=== PATIENT | female | born 1980 | race Caucasian/White ===

== ENCOUNTER 2020-05-23 19:30 | Emergency (ER) | payer SELFPAY ==
[~2020-05-23] VITALS: Ht 165.1 cm; Wt 72.7 kg
[2020-05-23] MEDS ORDERED: AUGMENTIN 875-11 TAB PO (19:40)
[2020-05-23 19:44] VITALS: BP 114/74; Ht 165.1 cm; Wt 72.7 kg
== END 2020-05-23 20:20 | disposition home or self-care (01) ==
LOC: D.ER 19:30
DX: L03.113 Cellulitis of right upper limb (principal)

== ENCOUNTER 2020-06-21 16:39 | Emergency (ER) | payer SELFPAY ==
[~2020-06-21] VITALS: Ht 165.1 cm; Wt 72.7 kg
[~2020-06-21 16:39] MED LIST: AUGMENTIN 875-11 TAB PO
[2020-06-21 16:52] VITALS: BP 133/66; Ht 165.1 cm; Wt 72.7 kg
[2020-06-21] MEDS ORDERED: FLAGYL500 MG PO (18:42)
[2020-06-21] MEDS ORDERED: DOXYCYCLINE HY100 M2 PO (18:42)
== END 2020-06-21 18:46 | disposition home or self-care (01) ==
LOC: D.ER 16:39
DX: S50.811A Abrasion of right forearm, initial encounter (principal); W55.03XA Scratched by cat, initial encounter; Y93.9 Activity, unspecified; Y92.9 Unspecified place or not applicable; E11.9 Type 2 diabetes mellitus without complications